=== PATIENT | female | born 1950 | race Caucasian/White ===

== ENCOUNTER 2022-06-18 10:52 | Outpatient (CLI) | payer OTHER | END 2022-06-18 11:10 | disposition home or self-care (01) | LOC: LAB 10:52 | PROVIDERS: ATTEND Internal Medicine | DX: Z01.810 Encounter for preprocedural cardiovascular examination (principal); I10 Essential (primary) hypertension; M54.50 Low back pain, unspecified; E03.9 Hypothyroidism, unspecified; E78.9 Disorder of lipoprotein metabolism, unspecified; E55.9 Vitamin D deficiency, unspecified; E11.51 Type 2 diabetes mellitus with diabetic peripheral angiopathy without gangrene; E66.8 Other obesity; G62.9 Polyneuropathy, unspecified; E11.42 Type 2 diabetes mellitus with diabetic polyneuropathy; Z12.31 Encounter for screening mammogram for malignant neoplasm of breast; Z13.820 Encounter for screening for osteoporosis; Z12.11 Encounter for screening for malignant neoplasm of colon ==

== ENCOUNTER 2022-06-18 12:32 | Outpatient (CLI) | payer OTHER | END 2022-06-18 12:33 | disposition home or self-care (01) | LOC: NUCLEAR 12:32 | PROVIDERS: ATTEND Orthopaedic Surgery | DX: M81.0 Age-related osteoporosis without current pathological fracture (principal) ==

== ENCOUNTER 2022-06-25 13:32 | Outpatient (CLI) | payer OTHER | END 2022-06-25 13:40 | disposition home or self-care (01) | LOC: LAB 13:32 | PROVIDERS: ATTEND Emergency Medicine Pediatric Emergency Medicine | DX: Z12.11 Encounter for screening for malignant neoplasm of colon (principal) ==

== ENCOUNTER 2022-07-04 11:28 | Outpatient (CLI) | payer OTHER ==
[~2022-07-04 11:28] MED LIST: AMOX-CLAV 875-1 EACH PO; AMOX1TAB5 PO; ATORVASTATIN CA20 MG PO; INTESTINEX680 M1 PO; VOLTAREN-XR100 MG PO; ZIPSOR25 MG PO
== END 2022-07-04 11:40 | disposition home or self-care (01) ==
LOC: MAMO-SONO 11:28
PROVIDERS: ATTEND Internal Medicine
DX: Z12.31 Encounter for screening mammogram for malignant neoplasm of breast (principal)

== ENCOUNTER 2022-07-25 08:08 | Outpatient (CLI) | payer OTHER | END 2022-07-25 08:19 | disposition home or self-care (01) | LOC: LAB 08:08 | PROVIDERS: ATTEND Radiology Diagnostic Radiology | DX: R42 Dizziness and giddiness (principal); E55.9 Vitamin D deficiency, unspecified; M85.9 Disorder of bone density and structure, unspecified ==

== ENCOUNTER 2022-07-29 09:52 | Outpatient (CLI) | payer OTHER | END 2022-07-29 15:07 | disposition home or self-care (01) | LOC: MRI 09:52 | PROVIDERS: ATTEND Neuromusculoskeletal Medicine & OMM | DX: R42 Dizziness and giddiness (principal); H83.3X9 Noise effects on inner ear, unspecified ear | CPT/HCPCS: 70552; Q9965; 70553 ==

== ENCOUNTER → 2023-01-16 09:46 | Outpatient (CLI) | payer OTHER | END | disposition home or self-care (01) | LOC: LAB 09:46 | PROVIDERS: ATTEND Neuromusculoskeletal Medicine & OMM | DX: I10 Essential (primary) hypertension (principal); M54.59 Other low back pain; E03.9 Hypothyroidism, unspecified; E78.9 Disorder of lipoprotein metabolism, unspecified; E55.9 Vitamin D deficiency, unspecified; E11.51 Type 2 diabetes mellitus with diabetic peripheral angiopathy without gangrene; E66.8 Other obesity; G62.9 Polyneuropathy, unspecified; E11.42 Type 2 diabetes mellitus with diabetic polyneuropathy; Z12.31 Encounter for screening mammogram for malignant neoplasm of breast; Z13.820 Encounter for screening for osteoporosis; Z12.11 Encounter for screening for malignant neoplasm of colon; G44.039 Episodic paroxysmal hemicrania, not intractable; R41.3 Other amnesia; G60.3 Idiopathic progressive neuropathy ==

== ENCOUNTER 2023-02-03 20:31 | Emergency (ER) | payer OTHER ==
[~2023-02-03] VITALS: Ht 167.6 cm; Wt 136.1 kg
[2023-02-03] MEDS ORDERED: TAMSULOSIN HCL0.4 MG PO (21:17)
[2023-02-03] MEDS ORDERED: OMEGA-3 ACID ETH1 GM PO (21:17)
[2023-02-03] MEDS ORDERED: BETHANECHOL CHL50 MG PO (21:17)
[2023-02-03] MEDS ORDERED: PREGABALIN75 MG PO (21:18)
== END 2023-02-04 03:20 | disposition home or self-care (01) ==
LOC: ER 20:31
DX: R10.32 Left lower quadrant pain (principal); I10 Essential (primary) hypertension; K76.0 Fatty (change of) liver, not elsewhere classified

== ENCOUNTER 2023-02-04 08:16 | Outpatient (CLI) | payer OTHER ==
[~2023-02-04 08:16] MED LIST changes: +BETHANECHOL CHL50 MG PO; +OMEGA-3 ACID ETH1 GM PO; +PREGABALIN75 MG PO; +TAMSULOSIN HCL0.4 MG PO
== END 2023-02-04 08:18 | disposition home or self-care (01) ==
LOC: NUCLEAR 08:16
PROVIDERS: ATTEND Neuromusculoskeletal Medicine & OMM
DX: G30.8 Other Alzheimer's disease (principal)
CPT/HCPCS: 78814; A9552

== ENCOUNTER → 2023-03-13 | Outpatient (CLI) | payer OTHER | END | disposition home or self-care (01) | LOC: NUCLEAR 03-03 11:00 | PROVIDERS: ATTEND Internal Medicine | DX: I10 Essential (primary) hypertension (principal); M54.59 Other low back pain; E03.9 Hypothyroidism, unspecified; E78.9 Disorder of lipoprotein metabolism, unspecified; E55.9 Vitamin D deficiency, unspecified; E11.51 Type 2 diabetes mellitus with diabetic peripheral angiopathy without gangrene; E66.8 Other obesity; G62.9 Polyneuropathy, unspecified; E11.42 Type 2 diabetes mellitus with diabetic polyneuropathy; Z12.31 Encounter for screening mammogram for malignant neoplasm of breast; Z13.820 Encounter for screening for osteoporosis ==

== ENCOUNTER 2023-04-01 16:21 | Emergency (ER) | payer OTHER ==
[~2023-04-01] VITALS: Ht 172.7 cm; Wt 100.2 kg
== END 2023-04-01 19:06 | disposition home or self-care (01) ==
LOC: ER 16:21
DX: M25.572 Pain in left ankle and joints of left foot (principal); W22.8XXA Striking against or struck by other objects, initial encounter; Y93.89 Activity, other specified; R06.02 Shortness of breath; Y92.019 Unspecified place in single-family (private) house as the place of occurrence of the external cause; M79.605 Pain in left leg

== ENCOUNTER 2023-07-17 09:58 | Outpatient (CLI) | payer OTHER | END 2023-07-17 10:12 | disposition home or self-care (01) | LOC: MRI 09:58 | PROVIDERS: ATTEND Neurological Surgery | DX: M47.12 Other spondylosis with myelopathy, cervical region (principal); M47.26 Other spondylosis with radiculopathy, lumbar region; N39.498 Other specified urinary incontinence; E66.2 Morbid (severe) obesity with alveolar hypoventilation; R97.0 Elevated carcinoembryonic antigen [CEA]; F03.90 Unspecified dementia, unspecified severity, without behavioral disturbance, psychotic disturbance, mood disturbance, and anxiety | CPT/HCPCS: 72141; 72148 ==